=== PATIENT | female | born 1980 | race Caucasian/White ===

== ENCOUNTER 2018-06-03 18:19 | Emergency (ER) | payer SELFPAY ==
[~2018-06-03] VITALS: Ht 154.9 cm; Wt 75.0 kg
[2018-06-03 18:27] VITALS: BP 123/79; TEMP 97.8
[2018-06-03] MEDS ORDERED: ALLEGRA-D 24HR1 T24 PO (18:29)
[2018-06-03] MEDS ORDERED: PAXIL 20MG20 MG PO (18:29)
[2018-06-03 19:10] VITALS: PULSE 85
[2018-06-03 19:32] LABS: HIV 1/2 Antibodies Non-Reactive; HIV-1p24 Antigen Non-Reactive
[2018-06-04 15:33] LABS: HEPATITIS B SURFACE ANTIBODY 42.4 (()); HEPATITIS B SURFACE ANTIGEN Negative (Negative); HEPATITIS C VIRUS ANTIBODY Negative (Negative)
== END 2018-06-03 19:10 | disposition home or self-care (01) ==
LOC: COL.ER 18:19
PROVIDERS: Nurse Practitioner
DX: S69.91XA Unspecified injury of right wrist, hand and finger(s), initial encounter (principal); F32.9 Major depressive disorder, single episode, unspecified; F41.9 Anxiety disorder, unspecified; W46.1XXA Contact with contaminated hypodermic needle, initial encounter; Y92.59 Other trade areas as the place of occurrence of the external cause